=== PATIENT | female | born 2000 | race Caucasian/White ===

== ENCOUNTER 2019-03-26 17:40 | Emergency (ER) | payer MEDICAID ==
[~2019-03-26] VITALS: Ht 160 cm; Wt 54.4 kg
[2019-03-26 17:40] VITALS: BP_SYST 117
[~2019-03-26 17:40] MED LIST: TYLENOL AT
--- NOTE | 2019-03-26 17:40 | NUR ---
BROUGHT BACK TO BED #4 AND TRIAGED. REPORT GIVEN TO CONSTANCE
--- NOTE | 2019-03-26 17:45 | NUR ---
Pt presents to ED c/o Splint in foot.
--- NOTE | 2019-03-26 17:50 | NUR ---
Dr. Pacheco at bedside.
--- NOTE | 2019-03-26 18:59 | NUR ---
[facility]
[2019-03-26] MEDS ORDERED: cefTRIAXone 1 GM VIAL IM ONE (19:45)
[2019-03-26] MEDS ORDERED: DIPH-TET-PERTUS Vaccine 0.5 ML VIAL (ADACEL) I.M. ONE (19:45)
[2019-03-26] MEDS ORDERED: IBUPROFEN 600 MG TABLET PO ONE (19:45)
[2019-03-26] MEDS ORDERED: HYDROcodone/ACETAMIN 5-325 MG TAB (NORCO/ VICODIN) PO ONE (19:45)
[2019-03-26] MEDS ORDERED: BACITRACIN 1 GM OINT TP ONE (19:52)
[2019-03-26] MEDS ORDERED: LIDOCAINE 1%, 20 ML MDV 20 ML ONE (19:53)
[2019-03-26 20:00] VITALS: BP_SYST 117
--- NOTE | 2019-03-26 20:02 | NUR ---
Pt has been medicated with with [place] and Motrin for pain, tolerdated administration well. Bacitracin was applied to site per Dr. Pacheco, extremity was wrapped with gauze, ortho shoe and crutches were also fitted to patient. Will continue to monitor.
--- NOTE | 2019-03-26 20:05 | NUR ---
Patient given written and verbal discharge instructions and verbalizes understanding. ER MD discussed with patient the results and treatment provided. Patient in stable condition. ID arm band removed. Rx of Keflex and Motrin given. Patient educated on pain management and to follow up with PMD. Pain Scale 0/10. Opportunity for questions provided and answered. Medication side effect fact sheet provided.
== END 2019-03-26 20:05 | disposition home or self-care (01) ==
LOC: SED 17:40
DX: S91.322A Laceration with foreign body, left foot, initial encounter (principal); W45.8XXA Other foreign body or object entering through skin, initial encounter; Y93.01 Activity, walking, marching and hiking; Y92.89 Other specified places as the place of occurrence of the external cause; Y99.8 Other external cause status
CPT/HCPCS: 10120; 73630; 90471; 90715; 96372; 99284; J0696; J2001

== ENCOUNTER 2019-04-06 06:55 | Emergency (ER) | payer MEDICAID ==
[~2019-04-06] VITALS: Ht 160 cm; Wt 54.4 kg
[2019-04-06 07:08] VITALS: BP_SYST 98
== END 2019-04-06 07:32 | disposition home or self-care (01) ==
LOC: SED 06:55
DX: S91.322D Laceration with foreign body, left foot, subsequent encounter (principal); Z48.02 Encounter for removal of sutures; W45.8XXD Other foreign body or object entering through skin, subsequent encounter
CPT/HCPCS: 99282

== ENCOUNTER 2019-05-04 15:49 | Emergency (ER) | payer MEDICAID ==
[~2019-05-04] VITALS: Ht 160 cm; Wt 54.4 kg
[2019-05-04 16:02] VITALS: BP_SYST 109
--- NOTE | 2019-05-04 16:15 | NUR ---
Patient to ER bed 07 to gown for evaluation. Side rails up.
--- NOTE | 2019-05-04 16:18 | NUR ---
Pt AAOx4 ambulated into ED c/o foreign body in foot s/p splinter x 1 month ago. Was seen by PMD and given ABX and pain medication which she completed, but has been removing pieces of wood periodically, but now states there is a deeper embedded wood that she requests a professional to remove. Denies pain. No other injuries/complaints per pt/noted. Will continue to monitor.
--- NOTE | 2019-05-04 16:30 | NUR ---
LEWIS Taylor at bedside examining patient.
--- NOTE | 2019-05-04 17:07 | NUR ---
Patient given written and verbal discharge instructions and verbalizes understanding. LEWIS Taylor discussed with patient the results and treatment provided. Patient in stable condition. ID arm band removed. Rx of Keflex 500mg QID given. Patient educated on pain management and to follow up with PMD. Pain Scale 0. Opportunity for questions provided and answered. Medication side effect fact sheet provided.
[2019-05-04 17:17] VITALS: BP_SYST 111
== END 2019-05-04 17:17 | disposition home or self-care (01) ==
LOC: SED 15:49
DX: S90.852A Superficial foreign body, left foot, initial encounter (principal); X58.XXXA Exposure to other specified factors, initial encounter; Y93.89 Activity, other specified; Y92.89 Other specified places as the place of occurrence of the external cause; Y99.8 Other external cause status
CPT/HCPCS: 99283; 99284

== ENCOUNTER 2023-01-17 20:29 | Emergency (ER) | payer MEDICAID ==
[~2023-01-17] VITALS: Ht 160 cm; Wt 59.0 kg
[2023-01-17 20:50] VITALS: BP_SYST 106
--- NOTE | 2023-01-17 21:09 | NUR ---
ER Dr. NDIAYE at bedside examining patient.
--- NOTE | 2023-01-17 21:21 | NUR ---
Patient to [facility] to [facility] for evaluation. Side rails up. Report given to MILLICENT MYRICK.
--- NOTE | 2023-01-17 21:27 | NUR ---
PT BIB MOTHER FROM HOME, AMBULATED TO CHAIR 1. PT A&Ox4, ABLE TO MAKE NEEDS KNOWN. PT C/O FEVER, BODY ACHES, AND NECK PAIN SINCE YESTERDAY. PT RATES NECK PAIN 02/08. PT STATES SHE FEELS WEAK AND TIRED. PT C/O HEADACHE AND VOMITING. PT DENIES DIARRHEA. PT STATES SHE TOOK THREE AT HOME COVID TESTS AND ALL CAME BACK NEGATIVE. PT STATES SHE TOOK TYLENOL 500MG AT 1900 AND MORTIN 200MG AT 2000. PT STATES TAKING THROAT SPRAY EVERY 2 [address]Y ME[address]URES IN PLACE.
[2023-01-17] MEDS ORDERED: IBUP-1969 PO (21:56)
[2023-01-17] MEDS ORDERED: ACET-2634 PO (21:56)
[2023-01-17 22:06] VITALS: BP_SYST 106
--- NOTE | 2023-01-17 22:06 | NUR ---
Patient given written and verbal discharge instructions and verbalizes understanding. ER DR NDIAYE discussed with patient the results and treatment provided. Patient in stable condition. ID arm band removed. Rx of TYLENOL AND MOTRIN given. Patient educated on pain management and to follow up with PMD. Pain Scale 0/10. Opportunity for questions provided and answered. Medication side effect fact sheet provided.
== END 2023-01-17 22:06 | disposition home or self-care (01) ==
LOC: SED 20:29
DX: J02.8 Acute pharyngitis due to other specified organisms (principal); R50.9 Fever, unspecified; M79.10 Myalgia, unspecified site; Z79.899 Other long term (current) drug therapy
CPT/HCPCS: 36415; 86403; 87081; 99283

== ENCOUNTER 2023-08-02 13:00 | Emergency (ER) | payer MEDICAID ==
[~2023-08-02] VITALS: Ht 160 cm; Wt 56.7 kg
[~2023-08-02 13:00] MED LIST changes: +ACET-2634 PO; +IBUP-1969 PO
[2023-08-02 13:05] VITALS: BP_SYST 111; PULSE 111; RESP 18; TEMP 97.8; O2SAT 98
[2023-08-02 15:15] LABS: STREPTOCOCCUS A SCREEN (RAPID) NEGATIVE (NEGATIVE)
[2023-08-02 15:22] LABS: COVID19 ANTIGEN SOFIA FIA NEGATIVE (NEGATIVE)
[2023-08-02 15:23] LABS: INFLUENZA TYPE A Negative (NEGATIVE)
[2023-08-02 15:29] LABS: INFLUENZA TYPE B POSITIVE (NEGATIVE)
[2023-08-02] MEDS ORDERED: IBUP-1968 PO (15:53)
[2023-08-02] MEDS ORDERED: OSEL75CA PO (15:53)
[2023-08-02] MEDS ORDERED: ACET325T PO (15:53)
[2023-08-02] MEDS ORDERED: MENT5.4L2 MM (15:53)
[2023-08-02] MEDS ORDERED: DEXAMETHASONE SOD PHOSPHATE 10 MG/ML VIAL PO ONE (16:00)
[2023-08-02 16:08] VITALS: BP_SYST 109; PULSE 89; RESP 18; TEMP 97.8; O2SAT 98
== END 2023-08-02 16:08 | disposition home or self-care (01) ==
LOC: SED 13:00
DX: J10.1 Influenza due to other identified influenza virus with other respiratory manifestations (principal); Z79.899 Other long term (current) drug therapy; Z20.822 Contact with and (suspected) exposure to COVID-19
CPT/HCPCS: 99283; 87426; 86403; 87081; 87804 ×2; J1100; 36415